=== PATIENT | female | born 1975 | race Caucasian/White ===

== ENCOUNTER 2017-02-22 08:05 | Day surgery (SDC) | payer BC ==
[2017-02-21 09:08] VITALS: BMI 34.5
[~2017-02-22 08:05] MED LIST: LACTATED RINGERS 1,000 ML IV SCH
[2017-02-22 08:26] VITALS: RESP 16; TEMP 97.6
[2017-02-22] MEDS ORDERED: LIDOCAINE 1% 20 ML VIAL (10MG/ML) FOR IV START INTRADERMA ONE (08:27)
[2017-02-22] MEDS ORDERED: PROPOFOL 10 MG/ML 20 ML VIAL IV ONE (08:32)
[2017-02-22] MEDS ORDERED: LIDOCAINE 1% INJ 10MG/ML (20 ML MDV) ONE (08:32)
--- NOTE | 2017-02-22 09:00 | P.OP ---
Date of Procedure: 02/22/17 Preoperative Diagnosis: History of sleeve gastrectomy GERD Postoperative Diagnosis: Same Procedure(s) Performed: Esophagogastroduodenoscopy with random biopsy of gastric body Anesthesia: MAC Surgeon: Jigna Murcia Pathology: other Condition: stable Disposition: PACU Indications for Procedure: 41 years old female status post laparoscopic sleeve gastrectomy with significant weight loss presents with worsening reflux. She elected to undergo EGD Description of Procedure: A timeout was performed to verify the correct patient and correct procedure. Patient was on continuous vitals and pulse ox monitoring throughout the procedure. She was placed in lateral decubitus position and an oral bite block was inserted. A well-lubricated Olympus upper endoscope was passed orally. The esophagus was intubated without difficulty. The vocal cords were visualised and protected at all times. Small gastric lumen consistent with history of sleeve gastrectomy. GE junction was noted at 34 cm . The proximal portion of the stomach was mildly dilated and at 37 cm from the incisors there is some narrowing noted. This area opened up easily with air insufflation and the scope could be passed into the distal stomach. The endoscope was passed beyond the pylorus into the first and second portion of the duodenum. No abnormality was noted in the duodenum mucosa. Two random biopsies were taken from the gastric body using cold biopsy forceps. The scope could not be retroflexed secondary to prior sleeve gastrectomy. No mass, active ulcer or bleeding stigmata noted within the gastric lumen. No evidence of distal esophagitis. The endoscope was gradually withdrawn. No abnormality identified in the esophagus. Patient tolerated the procedure well and was taken to post anesthesia care unit in stable condition. FINAL DIAGNOSIS: 1. H/O sleeve gastrectomy 2. GERD SPECIMEN: Gastric body biopsy RECOMMENDATION: 1.US shows gallstones - Plan for elective lap ca possible open 2. If no symptomatic improvent, consider esophagogram and UGI Final Pathologic Diagnosis STOMACH, BODY, BIOPSY: BENIGN GASTRIC MUCOSA WITH MILD CHRONIC INFLAMMATION, MUCOSAL HYPERPLASIA AND FUNDIC GLAND DILATION. HELICOBACTER IMMUNOPEROXIDASE STAIN IS PERFORMED TO EVALUATE FOR HELICOBACTER ORGANISMS AND IS NEGATIVE (CONTROLS APPROPRIATE
[2017-02-22 09:26] VITALS: BP 149/87; PULSE 84
== END 2017-02-22 09:36 | disposition home or self-care (01) ==
LOC: ORWHC2ENDO 08:05
PROVIDERS: ATTEND Surgery
DX: K21.9 Gastro-esophageal reflux disease without esophagitis (principal); Z98.84 Bariatric surgery status; E66.9 Obesity, unspecified; Z68.37 Body mass index [BMI] 37.0-37.9, adult; F41.1 Generalized anxiety disorder; F34.1 Dysthymic disorder; F32.9 Major depressive disorder, single episode, unspecified; R16.0 Hepatomegaly, not elsewhere classified; Z79.899 Other long term (current) drug therapy
CPT/HCPCS: 81025; 88305; 88342; 43239; J2001; J2704

== ENCOUNTER 2017-03-01 07:15 | Day surgery (SDC) | payer BC ==
[2017-02-28 10:52] VITALS: BMI 34.5
[~2017-03-01 07:15] MED LIST changes: +DEXAMETHASONE SOD PHOSPHATE 10 MG/ML 1 ML VIAL IV ONE; +HEPARIN SODIUM,PORCINE 5,000 UNIT/ML 1 ML VIAL SQ ONE; +HYDROmorphone 0.5 MG/0.5 ML SYRINGE IVP PRN; +LIDOCAINE 1% 20 ML VIAL (10MG/ML) FOR IV START INTRADERMA PRN; +SCOPOLAMINE 1.5MG/72HR PATCH TRANSDERM ONE; +ceFAZolin IN SWFI 2 GM/20 ML SYRINGE IVP ONE
[2017-03-01] MEDS: ONDANSETRON 4 MG/2 ML VIAL IVP ONE ×3 (07:20→09:45)
[2017-03-01] MEDS ORDERED: KETOROLAC 30 MG/ML 1 ML VIAL ONE (07:52)
[2017-03-01] MEDS ORDERED: ROCURONIUM BROMIDE 10 MG/ML 10 ML VIAL IV ONE (07:52)
[2017-03-01] MEDS ORDERED: LIDOCAINE 1% INJ 10MG/ML (20 ML MDV) ONE (07:52)
[2017-03-01] MEDS ORDERED: MIDAZOLAM 2 MG/2 ML VIAL ONE (07:52)
[2017-03-01] MEDS ORDERED: fentaNYL (PF) 50 MCG/ML 2 ML AMP ONE (07:52)
[2017-03-01] MEDS ORDERED: SUCCINYLCHOLINE CHLORIDE 100 MG/5 ML SYR IV ONE (07:52)
[2017-03-01] MEDS ORDERED: PROPOFOL 10 MG/ML 20 ML VIAL IV ONE (07:52)
[2017-03-01] MEDS ORDERED: BUPIVACAINE (PF) 0.25% 30 ML VIAL SQ ONE (08:23)
[2017-03-01 09:03] VITALS: RESP 16; TEMP 97.2
[2017-03-01 09:50] VITALS: BP 153/98; PULSE 83
[2017-03-01] MEDS: HYDROcodone/APAP 5-325MG 1 EACH TAB PO ONE ×2 (09:55→09:57)
--- NOTE | 2017-03-05 16:46 | P.OP ---
Date of Procedure: 03/01/17 Preoperative Diagnosis: Symptomatic cholelithiasis History of sleeve gastrectomy Obesity BMI 34.5 Postoperative Diagnosis: Same Procedure(s) Performed: Laparoscopic cholecystectomy Anesthesia: TARUNA, local Surgeon: Jigna Murcia Pathology: other Condition: stable Disposition: PACU Indications for Procedure: 41 years old female presented with abdominal pain. Ultrasound showed gallstones. Prior history of sleep gastrectomy with significant weight loss. Informed consent obtained and patient elected to undergo lap ca possible open. Description of Procedure: The patient was brought to the operating room and placed in supine position with both arms out. General anesthesia with endotracheal intubation was performed as per anesthesia team. Chlorhexidine was used to prep the abdomen followed by application of sterile drapes. A timeout was performed to verify correct patient and correct procedure. Patient was confirmed to receive perioperative IV antibiotics , heparin 5000 units subcutaneous injection and bilateral SCDs were placed. A 5 mm skin incision was made below the left costal margin at the anterior axillary line. A Veress needle was inserted and pneumoperitoneum was established to a pressure of 15 mmHg. A 5 mm Optiview trocar was loaded on a 5 mm 30 laparoscope and the peritoneal cavity was entered under direct vision using the Optiview technique. Additional 5 mm trocar was placed in the supraumbilical location and two 5 mm trocars along the right subcostal margin. The left 5 mm trocar was upsized to 10mm. The patient was placed in reverse Trendelenburg with right side up. The fundus of the gallbladder was grasped with an atraumatic grasper and was retracted over the dome of the liver. The infundibulum was grasped with an atraumatic grasper and retracted towards the pelvis to expose the Calot's triangle. Lateral and medial peritoneal attachment of the gallbladder bladder was dissected. Circumferential dissection was carried out around the cystic artery and the cystic duct to obtain adequate length for clip application. All the surrounding fibrofatty tissue were removed. Critical view was obtained with cystic duct and cystic artery as the only two structures entering the gallbladder. Two clips were applied on the patient's side and one on the specimen side on the cystic duct first followed by the cystic artery. Endoshears were used to divide the cystic duct and the cystic artery. The gallbladder was taken off the liver bed using a L-hook. It was placed in an endocatch specimen bag and removed through the 10mm port. The gallbladder was passed off as a specimen. The abdominal cavity was inspected. The clips on the cystic duct and cystic artery stump were intact and no bleeding noted from the liver bed. All the trocar sites were examined and no evidence of bleeding. The 10mm port site was closed with two transfascial sutures of 0 Vicryl using a Sammy Samira device. The pneumoperitoneum was evacuated and all the trocars were removed. Local anesthetic was infiltrated along the trocar sites and incisions were closed using 4-0 Monocryl followed by application of Dermabond skin glue. The sponge, instrument and needle count were correct x2. Patient was extubated and taken to post anesthesia care unit in stable condition.
== END 2017-03-01 11:51 | disposition home or self-care (01) ==
LOC: OR 07:15
PROVIDERS: ATTEND Surgery
DX: K80.10 Calculus of gallbladder with chronic cholecystitis without obstruction (principal); E66.9 Obesity, unspecified; Z68.37 Body mass index [BMI] 37.0-37.9, adult; F41.1 Generalized anxiety disorder; F34.1 Dysthymic disorder; F32.9 Major depressive disorder, single episode, unspecified; K21.9 Gastro-esophageal reflux disease without esophagitis; R16.0 Hepatomegaly, not elsewhere classified; Z98.84 Bariatric surgery status; Z79.899 Other long term (current) drug therapy; Z79.891 Long term (current) use of opiate analgesic; Z87.891 Personal history of nicotine dependence
CPT/HCPCS: 81025; 88304; 47562; J2250; J1644; J1100; J0690; J2405; J2001; J3010; J1885; J0330; J2704

== ENCOUNTER → 2018-04-09 | Outpatient (CLI) | payer BC ==
--- NOTE | 2018-04-10 14:40 | MM ---
Reason for exam: screening (asymptomatic). Last mammogram was performed 5 years and 1 month ago. History: Patient had first child at age 32. Family history of breast cancer in paternal grandmother. Reductions of both breasts, 2001. Took other hormone for 1 month. Physical Findings: A clinical breast exam by your physician is recommended on an annual basis and results should be correlated with mammographic findings. MG 3D Screening Mammo W/Cad Bilateral CC and MLO view(s) were taken. Prior study comparison: March 02, 2013, CAD bilateral diagnostic mammogram. The breast tissue is heterogeneously dense. This may lower the sensitivity of mammography. There is no discrete abnormality. No significant changes when compared with prior studies. ASSESSMENT: Negative, BI-RAD 1 RECOMMENDATION: Routine screening mammogram of both breasts in 1 year.
== END | disposition home or self-care (01) ==
LOC: RADMAMWWP 16:49
PROVIDERS: ATTEND Obstetrics & Gynecology
DX: Z12.31 Encounter for screening mammogram for malignant neoplasm of breast (principal)
CPT/HCPCS: 77063; 77067

== ENCOUNTER → 2023-05-28 | Outpatient (CLI) | payer BC ==
[2023-05-28 10:36] VITALS: BP 144/82; PULSE 77; RESP 16; TEMP 98.3
--- NOTE | 2023-05-28 11:09 | P.HPOB ---
History of Present Illness H&P Date: 05/28/23 Chief Complaint: The patient is here for her routine gynecologic exam and ma mmogram. This is a 48-year-old 013 with an LMP of 2019. The patient is here to establish with this office. She is status post tubal ligation and has been using a Mirena IUD since 2019. She had a Mirena IUD inserted at that time because of painful and heavy menstrual periods. She has been amenorrheic since then. She is wondering if she is having menopausal symptoms since she is experiencing night sweats, episodes of feeling very hot or very cold, and generalized pruritus. She has also noticed moodiness. It has been about 5 years since her last pelvic exam. Review of Systems Weight has been stable over the past year. She did lose about 100 pounds with diet and exercise between 2020 and 2022. She denies respiratory, cardiac, or GI problems. Past Medical History Past Medical History: GERD/Reflux Additional Past Medical History / Comment(s): gallstones. 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 History of Any Multi-Drug Resistant Organisms: None Reported Past Surgical History: Bariatric Surgery, Section, Cholecystectomy, Tubal Ligation Additional Past Surgical History / Comment(s): gastric sleeve, breast reduction, EGD. section 3. Facial reconstruction after an accident. Past Anesthesia/Blood Transfusion Reactions: No Reported Reaction Past Psychological History: Anxiety, Depression Smoking Status: Former smoker Past Alcohol Use History: Rare Additional Past Alcohol Use History / Comment(s): smoked for 5 yrs, quit smoking in her 20s, < 1ppd. History of heavier alcohol use and she has quit since 2020. Past Drug Use History: None Reported Additional History: She has been since 2005. 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 - Past Family History Mother Family Medical History: Hypertension Father Family Medical History: Hypertension Additional Family Medical History / Comment(s): Paternal aunt and paternal grandmother had breast cancer. Medications and Allergies Home Medications Medication Instructions Recorded Confirmed Type Multivitamins, Thera [Multivitamin 1 tab PO DAILY 02/21/17 05/28/23 History (formulary)] Omeprazole Magnesium [Prilosec OTC] 40 mg PO QAM 02/21/17 05/28/23 History ARIPiprazole [Abilify] 2.5 mg PO DAILY 05/28/23 05/28/23 History Sertraline [Zoloft] 100 mg PO DAILY 05/28/23 05/28/23 History Allergies Allergy/AdvReac Type Severity Reaction Status Date / Time No Known Allergies Allergy Verified 05/28/23 10:03 Exam Vital Signs Temp Pulse Resp BP Pulse Ox 05/28/23 10:06 98.3 F 77 16 144/82 100 Intake and Output 05/27/23 05/28/23 05/28/23 22:59 06:59 14:59 Other: Weight 68.039 kg Height 5 feet 3 inches, weight 150 pounds, BMI 26.6 This is a well-developed well-nourished white female who is alert and oriented times 3 in no acute distress. HEENT: Within normal limits. NECK: Supple without mass or thyromegaly. CHEST AND LUNGS: Clear to auscultation. HEART: Regular rate and rhythm. BREASTS: Are without mass or discharge. AXILLARY EXAM: Negative for adenopathy. BACK: Negative for CVA tenderness. ABDOMEN: Soft, nontender, without palpable masses. PELVIC EXAM: Normal external genitalia. Cervix and vagina appear normal. The cervix appears nulliparous. No IUD string is seen. There is no cervical motion tenderness. There is no unusual discharge. There is no evidence of prolapse. The uterus is midposition, nongravid size and nontender. There are no palpable adnexal masses or tenderness. RECTAL EXAM: Rectovaginal exam is negative for mass or tenderness and is negative for occult blood. EXTREMITIES: Nontender. IMPRESSION: 1. 48-year-old female with normal gynecologic exam. 2. Various symptoms which could indicate a perimenopausal state. These symptoms include night sweats, hot and cold feelings, moodiness and generalized pruritus. Some of these symptoms are not typical for menopause and other causes should be considered. 3. The patient has had a Mirena IUD in place since about 2019 and this was used for dysmenorrhea and hypermenorrhea. She has been amenorrheic since it was placed. The IUD string was not visible on exam today. 4. Secondary amenorrhea probably secondary to the Mirena IUD. This also may be due to a menopausal change as well. 5. Mildly elevated blood pressure. PLAN: 1. Pap smear cotest was performed. 2. Self breast awareness was discussed with the patient. We have also di scussed symptoms associated with inflammatory breast cancer. 3. Screening mammogram will be done today. 4. At this time the Mirena IUD will be left in place. The Mirena IUD is not for 8 years for control. She understands that after 5 years she may have less hormonal effect from the Mirena and it is possible that she may start having periods again. 5. Blood tests will include FSH, estradiol, and TSH. These will be done to determine if she is menopausal and to look into her symptoms. The order slip was given to the patient for this. 6.Osteoporosis prevention was discussed. I have stressed the importance of adequate calcium, vitamin D and regular exercise. Recommended amounts of calcium and vitamin D were also discussed. 7. Her mildly elevated blood pressure was discussed. I recommended that she check her own blood pressures on a regular basis at home since she does have a blood pressure cuff. She will follow up with her PCP for blood pressure elevations. 8. If she is considered menopausal, we will considered removing the Mirena IUD. This will probably require probing of the cervix to find the string and if the string is still not found, consider referral for hysteroscopic removal. Since she is not having any unusual pelvic discomfort I do not feel that testing to locate the IUD is necessary at this time. 9. She was advised to return in one year for her annual well woman exam and as needed.
--- NOTE | 2023-05-29 21:46 | MM ---
Reason for Exam: Screening (asymptomatic). Last mammogram was performed 5 year(s) and 2 month(s) ago. Patient History: Menarche at age 15. First Full-Term at age 32. Late child-bearing (after 30). Hormonal Contraceptives for 11 years, 1 month. 2002, Bilateral Reduction. Paternal grandmother had breast cancer. Risk Values: Corie 5 year model risk: 1.1%. NCI Lifetime model risk: 11.4%. Prior Study Comparison: 03/02/2013 Bilateral Diagnostic Mammogram, [facility]. 04/09/2018 Bilateral Screening Mammogram, [facility]. Tissue Density: The breast tissue is heterogeneously dense. This may lower the sensitivity of mammography. Findings: Analyzed By CAD. Interval decrease in breast size and diffusely increased breast density compatible with interval weight loss. There is increasing nodular asymmetric density along the anterior upper outer quadrant of the right breast for which further evaluation is recommended. Otherwise, no suspicious microcalcification or other discrete abnormality is seen. Overall Assessment: Incomplete: need additional imaging evaluation, BI-RAD 0 Management: Special View Mammogram of the right breast. Diagnostic Breast Ultrasound of the right breast. . [facility] will attempt to contact patient to return for supplemental views and ultrasound if indicated. Electronically signed and approved by: Maria Teresa Pizarro M.D. Radiologist
== END ==
LOC: WWCWWP 09:53
PROVIDERS: ATTEND Obstetrics & Gynecology
DX: Z12.31 Encounter for screening mammogram for malignant neoplasm of breast (principal); K21.9 Gastro-esophageal reflux disease without esophagitis; N91.1 Secondary amenorrhea; N92.0 Excessive and frequent menstruation with regular cycle; R03.0 Elevated blood-pressure reading, without diagnosis of hypertension; R61 Generalized hyperhidrosis; N94.6 Dysmenorrhea, unspecified; F39 Unspecified mood [affective] disorder; L29.9 Pruritus, unspecified; F41.9 Anxiety disorder, unspecified; F32.A Depression, unspecified; Z78.0 Asymptomatic menopausal state; Z98.51 Tubal ligation status; Z79.899 Other long term (current) drug therapy; Z80.3 Family history of malignant neoplasm of breast; Z87.891 Personal history of nicotine dependence; Z97.5 Presence of (intrauterine) contraceptive device
CPT/HCPCS: 77063; 77067

== ENCOUNTER → 2023-06-03 | Outpatient (CLI) | payer BC ==
--- NOTE | 2023-06-03 14:08 | MM ---
Reason for Exam: Follow-up at short interval from prior study. Last screening mammogram was performed less than 1 month ago. Patient History: Menarche at age 15. First Full-Term at age 32. Late child-bearing (after 30). Hormonal Contraceptives for 11 years, 1 month. 2001, Bilateral Reduction. Paternal grandmother had breast cancer. Risk Values: Corie 5 year model risk: 1.1%. NCI Lifetime model risk: 11.4%. Tissue Density: Right: The breast tissue is heterogeneously dense. This may lower the sensitivity of mammography. Findings: Analyzed By CAD. Nodular asymmetric density does not persist on spot 3-D CC or 3-D lateral views. It becomes less defined on one of the spot 3-D MLO views. Further ultrasound evaluation is recommended. Likely represents prominent island of tissue after the patient's interval weight loss. Ultrasound recommended to confirm. Overall Assessment: Incomplete: need additional imaging evaluation, BI-RAD 0 Management: Diagnostic Breast Ultrasound of the right breast. Upper outer quadrant within 4 cm of the nipple. Electronically signed and approved by: Maria Teresa Pizarro M.D. Radiologist
--- NOTE | 2023-06-03 14:20 | USB ---
Reason for Exam: Additional evaluation requested from abnormal screening. Patient History: Menarche at age 15. First Full-Term at age 32. Late child-bearing (after 30). Hormonal Contraceptives for 11 years, 1 month. 2001, Bilateral Reduction. Paternal grandmother had breast cancer. Risk Values: Corie 5 year model risk: 1.1%. NCI Lifetime model risk: 11.4%. Technique: Method: Targeted. Prior Study Comparison: 03/02/2013 Bilateral Diagnostic Mammogram, [facility]. 04/09/2018 Bilateral Screening Mammogram, [facility]. 05/28/2023 Bilateral MG 3D screening mammo w/cad, [facility]. Findings: The lateral section of the breast of the right breast, the axilla of the right breast and the retroareolar of the right breast were scanned. Targeted ultrasound upper outer quadrant right breast along the periareolar region. No solid or cystic lesion. Additional scanning at the axilla shows no adenopathy. Overall Assessment: Probably benign, BI-RAD 3 Management: Diagnostic Mammogram of the right breast in 6 months. A clinical breast exam by your physician is recommended on an annual basis and results should be correlated with mammographic findings. This exam should not preclude additional follow-up of suspicious palpable abnormalities. Results were given to the patient verbally at the time of exam. Electronically signed and approved by: Maria Teresa Pizarro M.D. Radiologist
== END | disposition home or self-care (01) ==
LOC: RADMAMWWP 13:20
PROVIDERS: ATTEND Obstetrics & Gynecology
DX: R92.331 Mammographic heterogeneous density, right breast (principal); N91.1 Secondary amenorrhea; N92.4 Excessive bleeding in the premenopausal period; Z80.3 Family history of malignant neoplasm of breast
CPT/HCPCS: 77061; 77065; 82670; 83001; 84443